=== PATIENT | male | born 1940 | race Caucasian/White ===

== ENCOUNTER → 2020-11-15 | Outpatient (CLI) | payer OTHER | END | disposition home or self-care (01) | LOC: US 11-14 15:30 | PROVIDERS: ATTEND Family Medicine | DX: M71.21 Synovial cyst of popliteal space [Baker], right knee (principal); I73.9 Peripheral vascular disease, unspecified ==

== ENCOUNTER 2021-11-03 21:01 | Emergency (ER) | payer OTHER ==
[~2021-11-03] VITALS: Wt 74.4 kg
== END 2021-11-03 22:38 | disposition home or self-care (01) ==
LOC: ED 21:01
DX: E11.649 Type 2 diabetes mellitus with hypoglycemia without coma (principal)